=== PATIENT | male | born 1980 | race Caucasian/White ===

== ENCOUNTER 2016-12-11 17:36 | Emergency (ER) | payer MEDICAID ==
[~2016-12-11] VITALS: Ht 160 cm; Wt 82.1 kg
[~2016-12-11 17:36] MED LIST: BUS10 PO; COLACE100 MG PO; FLA500 PO; LEVAQUIN750 MG PO; MOTRIN800 MG PO; PRI20 PO; SERTRALINE HYDR50 M1 PO; ZANTAC 150150 MG PO
[2016-12-11 20:10] VITALS: BP 151/74
== END 2016-12-11 20:10 | disposition home or self-care (01) ==
LOC: ED 17:36
DX: R10.13 Epigastric pain (principal); R11.2 Nausea with vomiting, unspecified; R19.7 Diarrhea, unspecified; Z72.89 Other problems related to lifestyle
CPT/HCPCS: J1885